=== PATIENT | female | born 1980 | race Caucasian/White ===

== ENCOUNTER 2017-11-26 22:52 | Emergency (ER) | payer MEDICAID ==
[2017-11-26 23:04] VITALS: BP 134/78
[2017-11-26] MEDS ORDERED: Acetaminophen/oxyCODONE 325-5 MG Tab PO ONE (23:35)
--- NOTE | 2017-11-26 23:41 | EDM.PDOC ---
ED HPI GENERAL MEDICAL PROBLEM - General Chief Complaint: General Stated Complaint: L flank pain Time Seen by Provider: 11/26/17 23:23 Source of Information: Reports: Patient History Limitations: Reports: No Limitations - History of Present Illness INITIAL COMMENTS - FREE TEXT/NARRATIVE: Patient is a 36-year-old female who presents to the emergency department this evening with a complaint of left flank and suprapubic abdominal pain. Patient was seen at [facility] today, had a urine test, and results did not show any infection. Patient was sent over to hospital for CT abdomen and pelvis without contrast to rule out kidney stones. Patient was also given 60 mg Toradol. I was unable to access the CT results because it was done outpatient through [facility]. I therefore contacted Dr. Carlos santiago who was able to access patient's records from the clinic as well as CAT scan results. She informed me that there was no infection in the urine, and CT results showed bilateral tiny renal calculi. No evidence of hydronephrosis or recent passage of stones. Suggestion was for pain medication and patient to follow-up at clinic tomorrow. Patient denies chest pain, shortness of breath, nausea, vomiting, diarrhea, or any trauma. Onset: Today Duration: Hour(s): Location: Reports: Abdomen, Other (Left Flank) Quality: Reports: Burning, Sharp Severity: Mild Improves with: Reports: None Worsens with: Reports: Other (Urination) Associated Symptoms: Reports: No Other Symptoms - Related Data Allergies Allergy/AdvReac Type Severity Reaction Status Date / Time aspirin Allergy Shortness Verified 11/26/17 22:54 of Breath Home Meds: Home Meds Ondansetron [Zofran ODT] 4 mg SL ASDIRECTED PRN 11/26/17 [History] Past Medical History HEENT History: Reports: Impaired Vision, Other (See Below) Other HEENT History: contacts Gastrointestinal History: Reports: Gastritis Genitourinary History: Reports: Renal Calculus, Other (See Below) Other Genitourinary History: since 2014 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 DRY WALL 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 History: C sections (2) Musculoskeletal History: Reports: Fibromyalgia, Other (See Below) Other Musculoskeletal History: lower back pain Neurological History: Reports: Migraines Endocrine/Metabolic History: Reports: Obesity/BMI 30+ - Infectious Disease History Infectious Disease History: Reports: Chicken Pox - Past Surgical History HEENT Surgical History: Reports: None GI Surgical History: Reports: Colonoscopy Female Surgical History: Reports: None, Section, Other (See Below) Other Female Surgeries/Procedures: c-sections x 2 Neurological Surgical History: Reports: None Musculoskeletal Surgical History: Reports: None Social & Family History - Family History Family Medical History: Noncontributory - Tobacco Use Smoking Status *Q: Former Smoker Used Tobacco, but Quit: Yes Month/Year Tobacco Last Used: 07/2015 - Caffeine Use Caffeine Use: Reports: Coffee - Recreational Drug Use Recreational Drug Use: No ED ROS GENERAL - Review of Systems Review Of Systems: ROS reveals no pertinent complaints other than HPI. Constitutional: Reports: No Symptoms HEENT: Reports: No Symptoms Respiratory: Reports: No Symptoms Cardiovascular: Reports: No Symptoms Endocrine: Reports: No Symptoms GI/Abdominal: Reports: Abdominal Pain. Denies: Constipation, Diarrhea, Nausea, Vomiting : Reports: Dysuria, Flank Pain Musculoskeletal: Reports: No Symptoms Skin: Reports: No Symptoms Neurological: Reports: No Symptoms Psychiatric: Reports: No Symptoms Hematologic/Lymphatic: Reports: No Symptoms Immunologic: Reports: No Symptoms ED EXAM, GENERAL - Physical Exam Exam: See Below Exam Limited By: No Limitations General Appearance: Alert, WD/WN, No Apparent Distress Throat/Mouth: Normal Inspection, Normal Oropharynx, No Airway Compromise Head: Atraumatic, Normocephalic Neck: Normal Inspection Respiratory/Chest: No Respiratory Distress, Lungs Clear, Normal Breath Sounds, No Accessory Muscle Use, Chest Non-Tender Cardiovascular: Normal Peripheral Pulses, Regular Rate, Rhythm, No Murmur GI/Abdominal: Normal Bowel Sounds, Soft, No Organomegaly, No Distention, No Abnormal Bruit, No Mass, Tender (Minimal suprapubic) Back Exam: Normal Inspection, CVA Tenderness (L) (Pain out of proportion with exam) Extremities: Normal Inspection, No Pedal Edema Neurological: Alert, Oriented, Normal Cognition Psychiatric: Normal Affect, Normal Mood Skin Exam: Warm, Dry, Intact, Normal Color, No Rash Lymphatic: No Adenopathy Course - Vital Signs Last Recorded V/S: Last Vital Signs Temp 97.6 F 11/26/17 23:03 Pulse 90 11/26/17 23:03 Resp 20 11/26/17 23:03 BP 134/78 11/26/17 23:03 Pulse Ox 99 11/26/17 23:03 - Orders/Labs/Meds Orders: Active Orders 24 hr Category Date Time Status Acetaminophen/oxyCODONE [Percocet 325-5 MG] Med 11/26/17 23:35 Once 1 tab PO ONETIME ONE - Re-Assessments/Exams Free Text/Narrative Re-Assessment/Exam: 11/26/17 23:45 Patient afebrile, nontoxic appearing, vital signs stable, pain controlled with 5 mg Percocet in ER. Patient will follow-up at [facility] tomorrow Departure - Departure Time of Disposition: 23:46 Disposition: Home, Self-Care 01 Condition: Good Clinical Impression: Acute flank pain, Kidney stones - Discharge Information Instructions: Flank Pain, Adult, [id number], Kidney Stones, [id number] Referrals: Ant Lopez, ACADEMIC GUIDANCE SPECIALIST [Primary Care Provider] - Additional Instructions: Follow-up at [facility] tomorrow. Return to emergency room sooner if symptoms continue or worsen. - My Orders Last 24 Hours: My Active Orders 11/26/17 23:35 Acetaminophen/oxyCODONE [Percocet 325-5 MG] 1 tab PO ONETIME ONE - Assessment/Plan Last 24 Hours: My Active Orders 11/26/17 23:35 Acetaminophen/oxyCODONE [Percocet 325-5 MG] 1 tab PO ONETIME ONE Assessment:: Flank pain Plan: Follow-up at clinic tomorrow
== END 2017-11-26 23:58 | disposition home or self-care (01) ==
LOC: SUPCPDRO 22:52 → KA.ED 22:52
DX: N20.0 Calculus of kidney (principal); Z88.6 Allergy status to analgesic agent; Z87.891 Personal history of nicotine dependence
CPT/HCPCS: 99283; A9270-GY